=== PATIENT | female | born 1955 | race Caucasian/White ===

== ENCOUNTER 2022-10-01 09:37 | Outpatient (CLI) | payer OTHER, SELFPAY ==
--- NOTE | 2022-10-01 10:15 | CRLHL7_ITS ---
For Patients: As a result of the Century Cures Act, medical imaging exams and procedure reports are released immediately into your electronic medical record. You may view this report before your referring provider. If you have questions, please contact your health care provider. INDICATION: MULTI FOCAL PNEUMONIA TECHNIQUE: Modified barium swallow. Fluoroscopic time 54 seconds. COMPARISON: None FINDINGS/IMPRESSION: Anatomical structures are normal. Swallowing mechanism appears within normal limits. No episodes of penetration or aspiration. No significant findings. Dictated by Philip Hi MD @ 10/01/2022 12:19:57 PM (Electronically Signed)
== END 2022-10-01 09:38 | disposition home or self-care (01) ==
PROVIDERS: PCP Family Medicine; Visit Provider Family Medicine
DX: J18.9 Pneumonia, unspecified organism (principal)
CPT/HCPCS: 74230; 92611

== ENCOUNTER 2023-11-27 09:37 | Outpatient (CLI) | payer MEDICARE, SELFPAY | END 2023-11-27 09:38 | disposition home or self-care (01) | PROVIDERS: PCP Family Medicine; Visit Provider Family Medicine | DX: I10 Essential (primary) hypertension (principal); I51.7 Cardiomegaly; I48.0 Paroxysmal atrial fibrillation | CPT/HCPCS: 93306 ==

== ENCOUNTER 2024-02-10 20:49 | Outpatient (CLI) | payer MEDICARE, SELFPAY | END 2024-02-10 20:50 | disposition home or self-care (01) | LOC: SLEEP 20:51 | PROVIDERS: PCP Family Medicine; Visit Provider Nurse Practitioner | DX: G47.33 Obstructive sleep apnea (adult) (pediatric) (principal) | CPT/HCPCS: 95810 ==